=== PATIENT | female | born 1985 | race Caucasian/White ===

== ENCOUNTER 2016-04-01 16:58 | Emergency (ER) | payer SELFPAY ==
[~2016-04-01] VITALS: Wt 68.2 kg
[2016-04-01] MEDS ORDERED: LIDOCAINE/MYLANTA 40 ML BTL PO STA (19:06)
[2016-04-01] MEDS ORDERED: ONDANSETRON 4 MG INJ IV STA (19:06)
[2016-04-01] MEDS ORDERED: FAMOTIDINE 20 MG INJ IV STA (19:06)
[2016-04-01] MEDS ORDERED: SOD CHLORIDE 0.9% 1,000 ML IV STA (19:06)
--- NOTE | 2016-04-01 19:34 | RADRPT ---
PROCEDURE: XR Chest. CLINICAL INDICATION: Shortness of breath. TECHNIQUE: Portable AP semi erect view of the chest was obtained. COMPARISON: None. FINDINGS: The cardiomediastinal silhouette is within normal limits. The lungs are clear. There is no evidenc e for pleural effusion, pneumothorax or pulmonary vascular congestion. The osseous structures are i ntact with no evidence for acute abnormality. RPTAT:HJJR IMPRESSION: No evidence for acute intrathoracic pathology. Physician Lesli Date Time Electronically viewed and signed by Kvng Perez Physician on 04/01/2016 19:34 /
[2016-04-01 19:39] LABS: BASOPHIL # 0.1 10^3/ul (0.0-0.1); BASOPHILS % 1.6 % (0.0-2.0); EOSINOPHILS # 0.1 10^3/ul (0.0-0.5); EOSINOPHILS % 1.2 % (0.0-7.0); HEMATOCRIT 44.4 % (37.0-47.0); HEMOGLOBIN 15.4 g/dl (12.0-16.0); LYMPHOCYTES # 2.1 10^3/ul (0.8-2.9); LYMPHOCYTES % 23.2 % (15.0-51.0); MEAN CORPUSCULAR HEMOGLOBIN 31.1 pg (29.0-33.0); MEAN CORPUSCULAR HGB CONC 34.8 g/dl (32.0-37.0); MEAN CORPUSCULAR VOLUME 89.6 fl (82.0-101.0); MEAN PLATELET VOLUME 8.9 fl (7.4-10.4); MONOCYTE # 0.3 10^3/ul (0.3-0.9); MONOCYTES % 2.9 % (0.0-11.0); NEUTROPHIL # 6.6 10^3/ul (1.6-7.5); NEUTROPHILS % 71.1 % (39.0-77.0); PLATELET COUNT 316 10^3/UL (140-440); RED BLOOD COUNT 4.96 10^6/ul (4.20-5.40); RED CELL DISTRIBUTION WIDTH 12.5 % (11.5-14.5); UNCORRECTED WBC 9.3 10^3/ul (4.8-10.8); WHITE BLOOD COUNT 9.3 10^3/ul (4.8-10.8)
[2016-04-01 19:40] LABS: CONDITION 1
[2016-04-01 19:53] LABS: ALBUMIN 4.9 g/dl (3.3-4.9)
[2016-04-01 19:54] LABS: POTASSIUM 3.9 mmol/L (3.5-5.1)
[2016-04-01 19:56] LABS: ALBUMIN/GLOBULIN RATIO 1.25; BILIRUBIN,INDIRECT 0.2 mg/dl (0-1.1); BILIRUBIN,TOTAL 0.2 mg/dl (0.2-1.3); CREATININE 0.79 mg/dl (0.44-1.00); TOTAL PROTEIN 8.8 g/dl (6.1-8.1)
[2016-04-01 19:57] LABS: CALCIUM 10.2 mg/dl (8.4-10.2)
[2016-04-01 20:09] LABS: ADD UMIC YES; URINE BILIRUBIN (Dip) NEGATIVE (NEGATIVE); URINE BLOOD (Dip) TRACE (NEGATIVE); URINE COLOR LT. YELLOW (YELLOW); URINE GLUCOSE (Dip) NEGATIVE (NEGATIVE); URINE KETONES (Dip) TRACE (NEGATIVE); URINE LEUKOCYTE ESTERASE (Dip) NEGATIVE (NEGATIVE); URINE NITRITE (Dip) NEGATIVE (NEGATIVE); URINE TOTAL PROTEIN (Dip) NEGATIVE (NEGATIVE); URINE UROBILINOGEN (Dip) 0.2 E.U./dL (0.1-1.0)
[2016-04-01 20:27] LABS: BACTERIA,URINE FEW; SQUAMOUS EPITHELIAL CELL,UR MODERATE; URINE RBCS 0-2 /HPF (0)
[2016-04-01] MEDS ORDERED: MECLIZINE 12.5 MG TAB PO ONE (21:00)
--- NOTE | 2016-04-01 21:43 | RADRPT ---
PROCEDURE: US Abdomen. CLINICAL INDICATION: Abdominal pain TECHNIQUE: Multiple real-time images were acquired of the patient's right upper quadrant utilizing a high resolution transducer. The images were reviewed on a high-resolution PACS workstation. COMPARISON: None FINDINGS: The liver demonstrates normal echogenicity and size and no focal lesions are seen. The liver measure s 14.3 cm in size. No gallstones are identified within the gallbladder. There is no pericholecystic fluid. The gallbladder wall measures 1.9 mm in size. No intrahepatic biliary dilatation is seen. The common bile duct measures 3.2 mm in maximal dimension. The visualized portions of the pancreas are unremarkable. No free fluid is identified. The right kidney is of normal size, and demonstrate normal echogenicity and morphology. The right k idney measures 10.3 x 4.3 x 5.4 cm. There are is no dilatation of the right collecting system. The re are no perinephric fluid collections. There are no areas of increased echogenicity to suggest ne phrolithiasis. IMPRESSION: Unremarkable right upper quadrant ultrasound. RPTAT: HPNM Physician Mario Date Time Electronically viewed and signed by Physician Mario on 04/01/2016 21:42 /
[2016-04-01] MEDS ORDERED: METOCLOPRAMIDE 10 MG INJ IV ONE (22:00)
[2016-04-01] MEDS ORDERED: DIPHENHYDRAMINE 50 MG INJ IV ONE (22:00)
[2016-04-01 22:26] VITALS: BP 117/76; PULSE 73; RESP 18; TEMP 98.6
[2016-04-01] MEDS ORDERED: FAMO-18 PO (22:47)
[2016-04-01] MEDS ORDERED: ACET500C5 PO (22:47)
[2016-04-01] MEDS ORDERED: ALBU8.5H3 INH (22:47)
--- NOTE | 2016-04-01 22:54 | ERD ---
ER Documentation Chief Complaint Date/Time DATE: 04/01/16 TIME: 22:49 Chief Complaint franklin, abd pain, nausea, fatigue HPI 30-year-old female with a past medical history of gastritis presents to the ED complaining of headache, nausea, shortness of breath, weakness, dizziness that started intermittently 3 weeks ago. States that her last menses started 2 days ago. States that sometimes her dizziness is positional. States that headache is temporal and does not radiate. Denies any chest pain, cough, fever, chills, pleuritic chest pain, dyspnea on exertion. Denies any recent traveling. Denies any leg swelling. Denies any smoking, alcohol use, drug use. ROS All systems reviewed and are negative except as per history of present illness. Medications Home Meds Active Scripts Albuterol Sulfate* (Proair HFA*) 8.5 Gm Hfa.aer.ad, 2 PUFF INH Q4, #1 INHALER Prov:CINTHIA MADISON PA-C 04/01/16 Famotidine* (Pepcid*) 20 Mg Tablet, 20 MG PO BID, #30 TAB Prov:CINTHIA MADISON PA-C 04/01/16 Acetaminophen* (Tylophen*) 500 Mg Capsule, 1 CAP PO Q6H Y for PAIN AND OR ELEVATED TEMP, #20 CAP Prov:CINTHIA MADISON PA-C 04/01/16 Allergies Allergies: Coded Allergies: No Known Allergy (Unverified , 04/01/16) PMhx/Soc Medical and Surgical Hx: pt denies Medical Hx, pt denies Surgical Hx History of Surgery: No Anesthesia Reaction: No Hx Neurological Disorder: No Hx Respiratory Disorders: No Hx Cardiac Disorders: No Hx Psychiatric Problems: No Hx Miscellaneous Medical Probl: No Hx Alcohol Use: No Hx Substance Use: No Hx Tobacco Use: No Smoking Status: Never smoker Physical Exam Vitals Vital Signs Date Time Temp Pulse Resp B/P Pulse Ox O2 Delivery O2 Flow Rate FiO2 04/01/16 22:26 98.6 73 18 117/76 98 Room Air 04/01/16 17:04 98.2 77 20 141/87 99 Physical Exam Const: [id number], well-nourished. In no acute distress. Head: Atraumatic, normocephalic Eyes: Normal Conjunctiva without injection. No purulent discharge. PERRL. EOMI ENT: Normal external ear. Ear canal without erythema. Tympanic membrane pearly hernandez without effusion or bulging. Nasal canal clear with normal turbinates. Moist oropharynx without tonsillar exudates. Non-erythematous pharynx. Uvula midline. No drooling. No trismus. Neck: Full range of motion. No meningismus. No cervical lymphadenopathy. Resp: Clear to auscultation bilaterally. No wheezing, rhonchi, rales, or crackles. No accessory muscle use. No retractions. Cardio: Regular rate and rhythm. No murmurs, rubs or gallops. Abd: Soft, non tender, non distended. Normal bowel sounds. No palpable masses. No rebound tenderness. No guarding. Skin: No petechiae or rashes Back: No midline tenderness. No CVA tenderness. Ext: No cyanosis, or edema. Neur: Awake and alert. Psych: Normal Mood and Affect Result Diagram: 04/01/16191904/01/161919 Results 24 hrs Laboratory Tests Test 04/01/16 19:17 04/01/16 19:20 Urine Bacteria FEW Urine Bilirubin NEGATIVE Urine Clarity SL.HAZY Urine Color LT. YELLOW Urine Glucose NEGATIVE% Urine Hemoglobin TRACE Urine Ketones TRACE Urine Leukocyte Esterase NEGATIVE Urine Microscopic RBC 0-2/HPF Urine Microscopic WBC NONE SEEN/HPF Urine Nitrite NEGATIVE Urine Specific [facility] 1.020 Urine Squamous Epithelial Cells MODERATE Urine Total Protein NEGATIVE Urine Urobilinogen 0.2 E.U./dL Urine pH 6.0 Alanine Aminotransferase (ALT/SGPT) 43IU/L Albumin 4.9g/dl Albumin/Globulin Ratio 1.25 Alkaline Phosphatase 83IU/L Anion Gap 19 Aspartate Amino Transf (AST/SGOT) 46IU/L Basophils # 0.110^3/ul Basophils % 1.6% Blood Urea Nitrogen 11mg/dl Calcium Level 10.2mg/dl Carbon Dioxide Level 28mmol/L Chloride Level 101mmol/L Creatinine 0.79mg/dl Direct Bilirubin 0.00mg/dl Eosinophils # 0.110^3/ul Eosinophils % 1.2% Globulin 3.90g/dl Glucose Level 95mg/dl Hematocrit 44.4% Hemoglobin 15.4g/dl Indirect Bilirubin 0.2mg/dl Lipase 66U/L Lymphocytes # 2.110^3/ul Lymphocytes % 23.2% Mean Corpuscular Hemoglobin 31.1pg Mean Corpuscular Hemoglobin Concent 34.8g/dl Mean Corpuscular Volume 89.6fl Mean Platelet Volume 8.9fl Monocytes # 0.310^3/ul Monocytes % 2.9% Neutrophils # 6.610^3/ul Neutrophils % 71.1% Nucleated Red Blood Cells # 0.010^3/ul Nucleated Red Blood Cells % 0.0/100WBC Platelet Count 11090^3/UL Potassium Level 3.9mmol/L Red Blood Count 4.9610^6/ul Red Cell Distribution Width 12.5% Sodium Level 144mmol/L Total Bilirubin 0.2mg/dl Total Protein 8.8g/dl White Blood Count 9.310^3/ul Current Medications Medications (Trade) Dose Ordered Sig/Joseph Route PRN Reason Start Time Stop Time Status Last Admin Dose Admin Sodium Chloride (NS) 1,000 ml @ 1,000 mls/hr Q1H STAT IV 04/01/16 19:06 04/01/16 20:05 DC 04/01/16 19:19 Ondansetron HCl (Zofran Inj) 4 mg ONCE STAT IV 04/01/16 19:06 04/01/16 19:09 DC 04/01/16 19:19 Famotidine (Pepcid Iv) 20 mg ONCE STAT IV 04/01/16 19:06 04/01/16 19:09 DC 04/01/16 19:19 Miscellaneous Medication (Gi Cocktail (2)) 40 ml ONCE STAT PO 04/01/16 19:06 04/01/16 19:09 DC 04/01/16 19:19 Meclizine HCl (Antivert) 12.5 mg ONCE ONCE PO 04/01/16 21:00 04/01/16 21:01 DC 04/01/16 20:40 Diphenhydramine HCl (Benadryl) 25 mg ONCE ONCE IV 04/01/16 22:00 04/01/16 22:01 DC 04/01/16 22:29 Metoclopramide HCl (Reglan) 10 mg ONCE ONCE IV 04/01/16 22:00 04/01/16 22:01 DC 04/01/16 22:29 Procedures/MDM 30-year-old female with a past medical history of gastritis presents the ED complaining of headache, abdominal pain, nausea, weakness, dizziness. Patient is afebrile and nontoxic-appearing. Patient has normal vital signs. Patient was further worked up with CBC, CMP, lipase, UA, urine , ultrasound of the gallbladder due to right upper quadrant pain. Patient was treated with 4 mg IV Zofran, 20 mg IV famotidine, GI cocktail, 1 liter normal saline with minimal relief of symptoms Patient reports dizziness is positional therefore patient was treated with Meclizine. Patient's pain and symptoms have improved after treatment with 10 mg IV Reglan, 25 mg IV Benadryl. CBC: No leukocytosis. No e/o of systemic infection. No e/o anemia. CMP: No e/o severe acidosis, alkalosis, renal failure, diabetic ketoacidosis, liver disease Lipase within normal limits. Urine: No leukocyte esterase, no nitrites, no hematuria. Urine : Negative EKG reviewed and interpreted by Dr. Rose Rate/Rhythm: [71 bpm, Normal Sinus Rhythm] No ectopy, no ST elevations, normal axis. QRS, ST, T-waves: [No changes consistent w/ acute ischemia] Impression: [No evidence of ischemia or arrhythmia] PROCEDURE: US Abdomen. CLINICAL INDICATION: Abdominal pain TECHNIQUE: Multiple real-time images were acquired of the patient's right upper quadrant utilizing a high resolution transducer. The images were reviewed on a high-resolution PACS workstation. COMPARISON: None FINDINGS: The liver demonstrates normal echogenicity and size and no focal lesions are seen. The liver measures 14.3 cm in size. No gallstones are identified within the gallbladder. There is no pericholecystic fluid. The gallbladder wall measures 1.9 mm in size. No intrahepatic biliary dilatation is seen. The common bile duct measures 3.2 mm in maximal dimension. The visualized portions of the pancreas are unremarkable. No free fluid is identified. The right kidney is of normal size, and demonstrate normal echogenicity and morphology. The right kidney measures 10.3 x 4.3 x 5.4 cm. There are is no dilatation of the right collecting system. There are no perinephric fluid collections. There are no areas of increased echogenicity to suggest nephrolithiasis. IMPRESSION: Unremarkable right upper quadrant ultrasound. PROCEDURE: XR Chest. CLINICAL INDICATION: Shortness of breath. TECHNIQUE: Portable AP semi erect view of the chest was obtained. COMPARISON: None. FINDINGS: The cardiomediastinal silhouette is within normal limits. The lungs are clear. There is no evidence for pleural effusion, pneumothorax or pulmonary vascular congestion. The osseous structures are intact with no evidence for acute abnormality. RPTAT:HJJR IMPRESSION: No evidence for acute intrathoracic pathology. Patient's abdominal pain is likely due to gastritis. Ultrasound shows no evidence of cholelithiasis, cholecystitis, cholangitis. Low suspicion for pancreatitis, ectopic , ovarian torsion, hypoglycemia, peptic ulcer disease, appendicitis, bowel obstruction, ileus, volvulus, nephrolithiasis, pyelonephritis, hepatitis, perforated viscus, diverticulitis, abdominal hernia, acute abdomen, mesenteric ischemia, TIA, stroke, meningitis or other emergent conditions. Low suspicion for acute myocardial infarction, pneumothorax, pneumonia, cardiac tamponade, pulmonary embolism, AAA, aortic dissection, Boerhaave's syndrome, cardiac dysrhythmias,meningitis, intracranial bleed, seizure, stroke, TIA or other emergent conditions. Patient's symptoms could likely be due to a migraine. Low suspicion for intracranial bleed, subarachnoid hemorrhage, epidural hemorrhage, subdural hemorrhage, meningitis, TIA, stroke, or other emergent conditions. Discharge medications: Famotidine, Tylenol, ProAir Follow up with primary care physician in 1-2 days for referral to white mixing operator. Instructed patient to return to the ED sooner for any worsening symptoms. Patient's questions were answered. Patient understood and agreed with discharge plan. Patient discharged stable. Departure Diagnosis: Primary Impression: Headache Headache type: unspecified Headache chronicity pattern: unspecified pattern Intractability: not intractable Qualified Code: R51 - Nonintractable headache, unspecified chronicity pattern, unspecified headache type Additional Impressions: Right upper quadrant abdominal pain Shortness of breath Dizziness Condition: Stable Patient Instructions: Dizziness, Unk Cause, Headache, Unspecified, Gastritis Vs. Ulcer Referrals: COMMUNITY CLINICS YOU HAVE RECEIVED A MEDICAL SCREENING EXAM AND THE RESULTS INDICATE THAT YOU DO NOT HAVE A CONDITION THAT REQUIRES URGENT TREATMENT IN THE EMERGENCY DEPARTMENT. FURTHER EVALUATION AND TREATMENT OF YOUR CONDITION CAN WAIT UNTIL YOU ARE SEEN IN YOUR DOCTORS OFFICE WITHIN THE NEXT 1-2 DAYS. IT IS YOUR RESPONSIBILITY TO MAKE AN APPOINTMENT FOR FOLOW-UP CARE. IF YOU HAVE A PRIMARY DOCTOR --you should call your primary doctor and schedule an appointment IF YOU DO NOT HAVE A PRIMARY DOCTOR YOU CAN CALL OUR PHYSICIAN REFERRAL HOTLINE AT IF YOU CAN NOT AFFORD TO SEE A PHYSICIAN YOU CAN CHOSE FROM THE FOLLOWING [facility] CLINICS [facility] [address] [place] [facility] [address] [place] [facility] [address] [facility] [address] [facility] [address] [facility] [address] [facility]. [facility] YOU HAVE RECEIVED A MEDICAL SCREENING EXAM AND THE RESULTS INDICATE THAT YOU DO NOT HAVE A CONDITION THAT REQUIRES URGENT TREATMENT IN THE EMERGENCY DEPARTMENT. FURTHER EVALUATION AND TREATMENT OF YOUR CONDITION CAN WAIT UNTIL YOU ARE SEEN IN YOUR DOCTORS OFFICE WITHIN THE NEXT 1-2 DAYS. IT IS YOUR RESPONSIBILITY TO MAKE AN APPOINTMENT FOR FOLOW-UP CARE. IF YOU HAVE A PRIMARY DOCTOR --you should call your primary doctor and schedule and appointment IF YOU DO NOT HAVE A PRIMARY DOCTOR YOU CAN CALL OUR PHYSICIAN REFERRAL HOTLINE AT . IF YOU CAN NOT AFFORD TO SEE A PHYSICIAN YOU CAN CHOSE FROM THE FOLLOWING [facility] INSTITUTIONS: [facility] [address] [place] [address] [facility] [address] [place] [address] [facility] [address] [place] [address] [facility] URGENT C[facility]/SPECIALTIES Additional Instructions: FOLLOW UP WITH YOUR PRIMARY CARE PHYSICIAN TOMORROW.Return to this facility if you are not improving as expected. CINTHIA MADISON PA-C Apr 01, 2016 22:54
== END 2016-04-01 23:22 | disposition home or self-care (01) ==
LOC: FTE 16:58
DX: R51 Headache (principal); R10.11 Right upper quadrant pain; R06.02 Shortness of breath; R42 Dizziness and giddiness
CPT/HCPCS: 36415; 71010; 76705; 80053; 81001; 83690; 85025; 93005; 96374; 96375; 99285; J1200; J2405; J2765; J7030; 81003

== ENCOUNTER 2016-04-08 21:15 | Emergency (ER) | payer SELFPAY ==
[~2016-04-08] VITALS: Ht 162.6 cm; Wt 75.1 kg
[~2016-04-08 21:15] MED LIST: ACET500C5 PO; ALBU8.5H3 INH; FAMO-18 PO
[2016-04-08 21:22] VITALS: Ht 162.6 cm; Wt 75.1 kg
[2016-04-08] MEDS ORDERED: KETOROLAC 15 MG INJ IM STA (23:20)
[2016-04-08] MEDS ORDERED: DIAZEPAM 5 MG TAB PO ONE (23:30)
[2016-04-08 23:57] LABS: URINE BLOOD (Dip) POC Negative (NEGATIVE)
[2016-04-09] MEDS ORDERED: DIAZ-90 PO (00:42)
[2016-04-09] MEDS ORDERED: NAPR-260 PO (00:42)
--- NOTE | 2016-04-10 03:11 | ERD ---
ER Documentation Chief Complaint Date/Time DATE: 04/10/16 TIME: 03:08 Chief Complaint left arm numbness x 4 days on and off HPI Pleasant 20-year-old female presents to emergency department with cervical pain , right arm numbness and muscular fatigue. Patient denies any injury, denies motor vehicle accident for neck injury. 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 Current symptoms have been present for the last 7 days. Patient was seen and evaluated on April 01, 2016 headache and dizziness. Patient denies headache at this time, denies photosensitivity, nausea, vomiting , patient denies vertigo symptoms. Palpitations, chest pain, or shortness of breath. ROS All systems reviewed and are negative except as per history of present illness. Medications Home Meds Active Scripts Diazepam* (Valium*) 5 Mg Tablet, 5 MG PO Q8, #10 TAB Prov:TIM,MARIANO 04/09/16 Naproxen* (Naprosyn*) 500 Mg Tablet, 500 MG PO BID Y for PAIN AND/OR INFLAMMATION, #30 TAB Prov:TIM,MARIANO 04/09/16 Albuterol Sulfate* (Proair HFA*) 8.5 Gm Hfa.aer.ad, 2 PUFF INH Q4, #1 INHALER Prov:CINTHIA MADISON PA-C 04/01/16 Famotidine* (Pepcid*) 20 Mg Tablet, 20 MG PO BID, #30 TAB Prov:CINTHIA MADISON PA-C 04/01/16 Acetaminophen* (Tylophen*) 500 Mg Capsule, 1 CAP PO Q6H Y for PAIN AND OR ELEVATED TEMP, #20 CAP Prov:CINTHIA MADISON PA-C 04/01/16 Allergies Allergies: Coded Allergies: No Known Allergy (Unverified , 04/01/16) PMhx/Soc History of Surgery: No Anesthesia Reaction: No Hx Neurological Disorder: No Hx Respiratory Disorders: No Hx Cardiac Disorders: No Hx Psychiatric Problems: No Hx Miscellaneous Medical Probl: No Hx Alcohol Use: Yes (SOCIAL DRINKER) Hx Substance Use: No Hx Tobacco Use: No Smoking Status: Never smoker Physical Exam Vitals Vital Signs Date Time Temp Pulse Resp B/P Pulse Ox O2 Delivery O2 Flow Rate FiO2 04/08/16 21:22 98.7 88 20 135/92 98 Vitals stable, nursing notes reviewed Physical Exam Const: No acute distress Head: Atraumatic Eyes: Normal Conjunctiva pupils equal round reactive to light and accommodation, positive EOMI ENT: Tympanic membranes translucent bilaterally, positive light reflex, nasal mucosa moist, pharynx moist, uvula rises and falls with pronation, tongue is midline.. Neck: Pain with rotation, and lateral bending, no cervical point tenderness, palpable paraspinal tenderness and right occipital scalp muscular tenderness. Resp: Clear to auscultation bilaterally Cardio: Regular rate and rhythm, no murmurs Abd: Soft, non tender, non distended. Normal bowel sounds Skin: Back: Ext: Neuro: M/S: Alert and oriented Face: EOMI, face and pharynx with normal sensation and function Motor: Normal strength throughout Sensation: Normal sensation throughout Speech: Normal Cerebel: Normal coordination Normal gait Normal finger to nose DTR: 2+ and symmetric upper/lower extremities Psych: Normal Mood and Affect Results 24 hrs Laboratory Tests Test 04/09/16 00:00 Bedside Urine Blood Negative Bedside Urine Glucose (UA) Negative Bedside Urine Ketones (LAB) Negative Bedside Urine Leukocyte Esterase (L Negative Bedside Urine Nitrite (LAB) Negative Bedside Urine Protein (LAB) Negative Bedside Urine pH (LAB) 6.0 Current Medications Medications (Trade) Dose Ordered Sig/Joseph Route PRN Reason Start Time Stop Time Status Last Admin Dose Admin Ketorolac Tromethamine (Toradol) 15 mg ONCE STAT IM 04/08/16 23:20 04/08/16 23:23 DC 04/08/16 23:49 Diazepam (Valium) 5 mg ONCE ONCE PO 04/08/16 23:30 04/08/16 23:31 DC 04/08/16 23:47 Interpretation text U hCG negative for evidence of . Procedures/MDM Pleasant 30-year-old female presents to emergency department today for evaluation cervical pain and right arm numbness and tingling. Physical exam positive for cervical strain, numbness suspected from radiculopathy. Patient had full evaluation 48 hours prior for headache and dizziness. So I have decided to treat medically with Toradol and Valium. Reassessment in 30 minutes patient reports improvement of neck pain and tingling. Reports she still has tingling sensation in her arm. Patient's neurological exam is normal. I feel patient is a candidate for outpatient treatment for neck pain. patient is stable for discharge at this time. examination findings, the treatment plan with the patient and family present prior to discharge. I doubt injury cervical x-ray was not obtained at this visit. Patient agrees with this decision. Instructed to follow-up with primary care physician for reevaluation and possible referral to physical therapy. Good body ergonomics discussed. Indications for emergent reevaluation, side effects of medication were also discussed. All questions were answered. Patient verbalizes understanding and agrees with plan of care. Departure Diagnosis: Primary Impression: Cervical muscle pain Condition: Good Patient Instructions: Neck Pain, No Trauma Referrals: [facility] CL[facility]ICS YOU HAVE RECEIVED A MEDICAL SCREENING EXAM AND THE RESULTS INDICATE THAT YOU DO NOT HAVE A CONDITION THAT REQUIRES URGENT TREATMENT IN THE EMERGENCY DEPARTMENT. FURTHER EVALUATION AND TREATMENT OF YOUR CONDITION CAN WAIT UNTIL YOU ARE SEEN IN YOUR DOCTORS OFFICE WITHIN THE NEXT 1-2 DAYS. IT IS YOUR RESPONSIBILITY TO MAKE AN APPOINTMENT FOR FOLOW-UP CARE. IF YOU HAVE A PRIMARY DOCTOR --you should call your primary doctor and schedule an appointment IF YOU DO NOT HAVE A PRIMARY DOCTOR YOU CAN CALL OUR PHYSICIAN REFERRAL HOTLINE AT IF YOU CAN NOT AFFORD TO SEE A PHYSICIAN YOU CAN CHOSE FROM THE FOLLOWING [facility] CLINICS [facility] [address] [facility]. [facility] [address] [facility] [address] [facility] [address] [facility] [facility] [address] [facility]. [facility]. [address] Additional Instructions: Thank you for for coming to [facility] for your care today. Please ask your nurse or provider if you have questions about your care today and do not leave until all your questions have been answered. Please use any medications given as directed and follow-up with your doctor (or the doctor you were referred to) in the next 2-3 days. If you do not have a primary care doctor you may follow up at the [facility] (listed below). You may also use motrin and tylenol as needed for fever and/or pain unless instructed otherwise by your provider or nurse. Indications for more urgent follow-up have been discussed, but you may return to the Emergency Department at ANY time for any worrisome or worsening symptoms. If you have abdominal pain, please know that no test or exam you received is perfect and you should follow up within 8 hours for continued pain. If you had any imaging studies today, such as an X-Ray or CT Scan, these studies will be reviewed later by a radiologist. You will be called if there are important findings that were not identified today, so make sure the contact information you provided at registration is correct. If you received any narcotic pain control medicine today, such as Vicodin, Morphine or Dilaudid, your coordination and judgment may be affected for a number of hours. Please do not drive or operate heavy machinery, and you may want someone to assist you at home. If you were given a prescription for narcotic medication, be aware that it is very addictive- use sparingly and only if necessary. MARIANO DUMONT Apr 10, 2016 03:11
== END 2016-04-09 01:41 | disposition home or self-care (01) ==
LOC: FTE 21:15
DX: M54.2 Cervicalgia (principal)
CPT/HCPCS: 81003; 96372; 99284; J1885